=== PATIENT | female | born 1980 | race Caucasian/White ===

== ENCOUNTER 2023-12-12 08:40 | Emergency (ER) | payer BC, SELFPAY ==
[2023-12-12 09:25] VITALS: BP 117/78; PULSE 67; RESP 16; TEMP 36.8; O2SAT 100
[2023-12-12 09:28] VITALS: BP 117/78; PULSE 67; RESP 16; TEMP 36.8; O2SAT 100
--- NOTE | 2023-12-12 09:55 | ED.EYEPROB ---
HPI - Eye Problem General Chief complaint: Eye Problems Stated complaint: eye swelling and redness Time Seen by Provider: 12/12/23 09:56 Source: patient, RN notes reviewed and old records reviewed Mode of arrival: ambulatory Limitations: no limitations History of Present Illness HPI Narrative: 43-year-old female to the [facility] with complaint right of upper eyelid pain, redness, swelling, itching since last night. Patient reports history of LASIK in 2019. Patient states she has attempted to treat at home with Zyrtec and artificial tears with little relief. Patient denies visual changes, sensitivity to light, drainage from eye, Foreign body, injury, recent illness. Patient resting comfortably in exam room in no acute distress. Respirations even and nonlabored. Related Data Home Medications Medication Instructions Recorded Confirmed albuterol 90 mcg/actuation aerosol 90 mcg inhalation PRN PRN 12/12/23 12/12/23 inhaler Shortness Of Breath Or Wheezing levonorgestrel 21 mcg/24 hr (up to 1 device intrauterine ONCE 12/12/23 12/12/23 8 years) 52 mg intrauterine device (Mirena) Allergies Allergy/AdvReac Type Severity Reaction Status Date / Time codeine AdvReac Mild Hives Verified 12/12/23 09:40 erythromycin base AdvReac Mild Hives Verified 12/12/23 09:40 HYDROCODONE BIT AdvReac Mild Hives Uncoded 12/12/23 09:40 OXYCODONE HCL AdvReac Mild Hives Uncoded 12/12/23 09:40 Review of Systems Review of Systems: All systems reviewed & are unremarkable except as noted in HPI and below Constitutional: Constitutional: Reports no additional constitutional complaints Eyes: Eyes: Reports as per HPI, Denies blurry vision, Denies eye discharge, Reports irritation ( Right upper eyelid), Denies other visual disturbances, Reports eye pain and Denies photophobia ENT: Reports system reviewed and no additional complaints, except as documented Cardiovascular: Cardiovascular: Reports no additional cardiovascular complaints, Denies chest pain and Denies dyspnea Respiratory: Respiratory: Reports no additional respiratory complaints, Denies cough and Denies dyspnea Musculoskeletal: Musculoskeletal: Reports no additional musculoskeletal complaints Neurologic: Reports system reviewed and no additional complaints, except as documented Psychiatric: Psychiatric: Reports no additional psychiatric complaints PMFSH Comments At the time of my signature, I reviewed and agree with the nursing past medical, surgical, social, and family history. There is no relevant family history pertinent to the patient complaint. Exam Const: General: cooperative, healthy appearing, no acute distress, alert, uncomfortable and well nourished Nutritional Appearance: well nourished Orientation/consciousness: patient oriented x3 Limitations: no limitations HENMT: Head: normal to inspection Ears: external ears normal Face/Nose/Sinus: Normal external nose present, Normal nares present, normal facial exam, No erythema and No edema Face and sinus: normal facial exam, no erythema and no edema Mouth: Yes Normal oral and palatal mucosa present Eyes: Alignment and Position: alignment normal and position normal Periorbital: periorbital findings normal Eyelids: eyelid abnormality right upper eyelid erythema, swelling and tenderness Conjunctivae: conjunctivae normal Sclera: sclerae normal Pupils: Equal, round and reactive pupils present Neck: Neck: normal visual inspection, full ROM and no meningeal signs Chest: Chest palpation & inspection: normal inspection of the chest Resp: Effort & Inspection: normal respiratory effort and able to speak in complete sentences Cardio: Jugular venous distension: no JVD Back/Spine/Pelvis: Cervical Spine: cervical ROM normal Skin: General skin exam: normal color, no rashes or lesions noted and turgor normal Neuro: General: patient oriented x3, gait normal, moves all extremities and no meningeal signs Speech: normal speech
== END 2023-12-12 10:16 | disposition home or self-care (01) ==
PROVIDERS: Emergency Provider Nurse Practitioner Family; PCP Family Medicine
DX: H00.011 Hordeolum externum right upper eyelid (principal); J45.909 Unspecified asthma, uncomplicated; Z86.16 Personal history of COVID-19
CPT/HCPCS: 99202; G0463